=== PATIENT | male | born 1995 | race Caucasian/White ===

== ENCOUNTER 2020-09-02 12:59 | Emergency (ER) | payer OTHER ==
[~2020-09-02] VITALS: Ht 175.3 cm; Wt 74.8 kg
[2020-09-02 13:22] VITALS: BP 112/72
== END 2020-09-02 16:22 | disposition left against medical advice (07) ==
LOC: ER 12:59 → EDBD 12:59 → ER 16:22
DX: S61.412A Laceration without foreign body of left hand, initial encounter (principal); Z53.21 Procedure and treatment not carried out due to patient leaving prior to being seen by health care provider; V89.2XXA Person injured in unspecified motor-vehicle accident, traffic, initial encounter; Y93.89 Activity, other specified; Y92.89 Other specified places as the place of occurrence of the external cause; Y99.8 Other external cause status